=== PATIENT | male | born 1975 | race Caucasian/White ===

== ENCOUNTER 2017-05-30 08:18 | Emergency (ER) | payer MEDICAID ==
--- NOTE | 2017-05-30 09:17 | ER Document Report ---
ED General - General Chief Complaint: Probable Seizure Stated Complaint: POSSIBLE SEIZURE Time Seen by Provider: 05/30/17 09:16 Mode of Arrival: Medic Information source: Patient, Parent TRAVEL OUTSIDE OF THE [place] IN LAST 30 DAYS: No - HPI Notes: Patient is a 42-year-old male status post resection for anaplastic astrocytoma 2010 presents to the emergency department with report of a new onset seizure which occurred today just prior to arrival. The patient had right sided shaking followed by left-sided shaking then generalized tonic clonic seizure activity observed by his mother while he was sitting on the couch. EMS arrived to find a normal blood sugar and normal vital signs and the patient to be postictal with a gradual recovery. Patient did not bite his tongue or lose continence. Patient is on no medications. Patient is receiving regular MRIs of the brain every 2 months prior to seeing his regular neuro-oncologist. No HI or neck pain. - Related Data Allergies/Adverse Reactions: Penicillins Allergy (Verified 11/10/14 10:28) phenytoin sodium [From Dilantin] Allergy (Verified 11/10/14 10:28) phenytoin sodium extended [From Dilantin] Allergy (Verified 11/10/14 10:28) Past Medical History - General Information source: Patient, Parent - Social History Smoking Status: Never Smoker Chew tobacco use (# tins/day): No Frequency of alcohol use: None Drug Abuse: None Lives with: Family Family History: Reviewed & Not Pertinent Pulmonary Medical History: Denies: Hx Tuberculosis Past Surgical History: Reports: Hx Cholecystectomy, Hx Neurologic Surgery - brain tumor, Hx Orthopedic Surgery - ACL repair - Immunizations Hx Diphtheria, Pertussis, Tetanus Vaccination: Yes Hx Pneumococcal Vaccination: 11/19/11 Review of Systems - Review of Systems Notes: REVIEW OF SYSTEMS: CONSTITUTIONAL : Denies fever, chills, or sweats. Denies recent illness. EENT: Denies eye, ear, throat, or mouth pain or symptoms. Denies nasal or sinus congestion or discharge. Denies throat, tongue, or mouth swelling or difficulty swallowing. CARDIOVASCULAR: Denies chest pain. Denies palpitations or racing or irregular heart beat. Denies ankle edema. RESPIRATORY: Denies cough, cold, or chest congestion. Denies shortness of breath, difficulty breathing, or wheezing. GASTROINTESTINAL: Denies abdominal pain or distention. Denies nausea, vomiting , or diarrhea. Denies blood in vomitus, stools, or per rectum. Denies black, tarry stools. Denies constipation. GENITOURINARY: Denies difficulty urinating, painful urination, burning, frequency, blood in urine, or discharge. MUSCULOSKELETAL: Denies back or neck pain or stiffness. Denies joint pain or swelling. SKIN: Denies rash, lesions or sores. HEMATOLOGIC : Denies easy bruising or bleeding. LYMPHATIC: Denies swollen, enlarged glands. NEUROLOGICAL: Denies confusion or altered mental status. Denies passing out or loss of consciousness. Denies dizziness or lightheadedness. Denies headache. Denies weakness or paralysis or loss of use of either side. Denies problems with gait or speech. Denies sensory loss, numbness, or tingling. PSYCHIATRIC: Denies anxiety or stress. Denies depression, suicidal ideation, or homicidal ideation. ALL OTHER SYSTEMS REVIEWED AND NEGATIVE. Dictation was performed using [employer] voice recognition software Physical Exam - Vital signs Vitals: Resp BP Pulse Ox 14 121/76 100 05/30/17 08:23 05/30/17 08:23 05/30/17 08:23 - Notes Notes: PHYSICAL EXAMINATION: GENERAL: Well-appearing, well-nourished and in no acute distress. HEAD: Atraumatic, normocephalic with the exception of old postsurgical changes. EYES: Pupils equal round and reactive to light, extraocular movements intact, sclera anicteric, conjunctiva are normal. ENT: Nares patent, oropharynx clear without exudates. Moist mucous membranes. NECK: Normal range of motion, supple without lymphadenopathy LUNGS: Breath sounds clear to auscultation bilaterally and equal. No wheezes rales or rhonchi. HEART: Regular rate and rhythm holosystolic 2/6 ejection murmur best auscultated over the apex. This is consistent with the patient's history of mitral valve prolapse. ABDOMEN: Soft, nontender, nondistended abdomen. No guarding, no rebound. No masses appreciated. Musculoskeletal: Normal range of motion, no pitting or edema. No cyanosis. NEUROLOGICAL: Cranial nerves grossly intact. Normal speech, normal gait. Normal sensory, motor exams. Patient has mild chronic Short-term memory loss, but is currently alert and oriented 3. PSYCH: Normal mood, normal affect. SKIN: Warm, Dry, normal turgor, no rashes or lesions noted. Course - Re-evaluation Re-evalutation: 05/30/17 14:23 Patient was noted to be in bigeminy on the supply coordinator while in route by EMS. While in the emergency department, the patient was briefly and trigeminy, but had stable vital signs otherwise and no significant bradycardia or weakness or other abnormality. There was no recurrent seizure activity. There is no evidence that the patient's bigeminy is a etiology of the patient' s observed seizure activity. This seems more postsurgical related to the previous astrocytoma resection. Patient does have a history of mitral valve prolapse, but did not have further follow-up since she was a child and was told they would not be additional intervention. I have informed the patient and his family that he needs a follow-up with cardiology and possible Holter monitor and echocardiogram. Discussion was undertaken with the patient's neuro oncologist office, and they were in agreement with his regular scheduled follow-up MRI on 06/06/18 with follow-up with the neuro-oncologist the next day. They will arrange for outpatient cardiology evaluation and echocardiogram. They also agreed with starting the patient on Keppra and he was given his first dose. 05/30/17 14:27 No suggestion for acute intracranial hemorrhage or recurrence of cancer or electrolyte imbalance. Patient does not drink and there is no drug toxidrome. No recent sleep deprivation or other precipitant. 05/30/17 14:27 - Vital Signs Vital signs: Temp Pulse Resp BP Pulse Ox 98.6 F 19 119/76 94 05/30/17 12:16 05/30/17 12:26 05/30/17 12:26 05/30/17 12:26 - Laboratory Result Diagrams: 05/30/17 09:00 05/30/17 09:00 Discharge - Discharge Clinical Impression: Bigeminy, Seizure Condition: Stable Disposition: HOME, SELF-CARE Instructions: New Seizure ([facility]) Additional Instructions: No baths. Showers only. You need follow-up with cardiology for bigeminy and a repeat echocardiogram. Follow-up with Dr. Dutta after MRI next week. Prescriptions: Levetiracetam [Keppra 500 mg Tablet] 500 mg PO Q12 #60 tablet Referrals: SHERLEY GREGG PA [Primary Care Provider] - Follow up as needed
[2017-05-30 09:50] LABS: ABSOLUTE BASOPHILS # (AUTO) 0.1 10^3/uL (0.0-0.2); ABSOLUTE EOSINOPHILS # (AUTO) 0.3 10^3/uL (0.0-0.6); ABSOLUTE LYMPHOCYTES (AUTO) 1.9 10^3/uL (0.5-4.7); ABSOLUTE MONOCYTES (AUTO) 0.4 10^3/uL (0.1-1.4); EOSINOPHILS % (AUTO) 4.8 % (0-6); HEMATOCRIT 41.7 % (37.9-51.0); HEMOGLOBIN 14.6 g/dL (13.5-17.0); HGB HCT DIFFERENCE 2.1; LYMPHOCYTES % (AUTO) 27.9 % (13-45); MEAN CORPUSCULAR HGB CONC 34.9 g/dL (32.0-36.0); MEAN CORPUSCULAR VOLUME 86 fl (80-97); MONOCYTES % (AUTO) 6.4 % (3-13); RED BLOOD COUNT 4.85 10^6/uL (4.35-5.55); RED CELL DISTRIBUTION WIDTH 13.1 % (11.5-14.0); SEGMENTED NEUTROPHILS % (AUTO) 59.9 % (42-78); WHITE BLOOD COUNT 6.6 10^3/uL (4.0-10.5)
[2017-05-30 10:02] LABS: ALANINE AMINOTRANSFERASE 45 U/L (21-72); ALBUMIN 4.3 g/dL (3.5-5.0); ALKALINE PHOSPHATASE 117 U/L (38-126); ANION GAP 10 (5-19); ASPARTATE AMINO TRANSFERASE 40 U/L (17-59); BILIRUBIN,DIRECT 0.3 mg/dL (0.0-0.4); BILIRUBIN,TOTAL 0.8 mg/dL (0.2-1.3); BLOOD UREA NITROGEN 18 mg/dL (7-20); CALCIUM 9.7 mg/dL (8.4-10.2); CARBON DIOXIDE 25 mmol/L (22-30); CHLORIDE 106 mmol/L (98-107); CREATININE RESULT 0.96 mg/dL (0.52-1.25); GLUCOSE 87 mg/dL (75-110); MAGNESIUM 2.2 mg/dL (1.6-2.3); POTASSIUM 4.7 mmol/L (3.6-5.0); SODIUM 140.9 mmol/L (137-145); TOTAL PROTEIN 7.5 g/dL (6.3-8.2)
--- NOTE | 2017-05-30 10:23 | RADIOLOGY REPORT (SQ) ---
EXAM DESCRIPTION: CT HEAD WITHOUT COMPLETED DATE/TIME: 05/30/2017 10:12 am REASON FOR STUDY: new onset seizure, hx astrocytoma removal 2010 COMPARISON: 08/19/2011. TECHNIQUE: Axial images acquired through the brain without intravenous contrast. Images reviewed wi th bone, brain and subdural windows. Images stored on PACS. All CT scanners at this facility use dose modulation, iterative reconstruction, and/or weight based d osing when appropriate to reduce radiation dose to as low as reasonably achievable (ALARA). [facility]: Dose Right [facility]: CareDose [facility]: Dose Right [facility]: Teradose 4D [facility]: [employer] RADIATION DOSE: Up-to-date CT equipment and radiation dose reduction techniques were employed. CTDIv ol: 64.6 mGy. DLP: 1292 mGy-cm. mGy. LIMITATIONS: None. FINDINGS: VENTRICLES: Mild diffuse ventriculomegaly. CEREBRUM: Surgical changes in the left frontal lobe with encephalomalacia. No masses. No hemorrhage . No midline shift. Normal chew/white matter differentiation. No evidence for acute infarction. CEREBELLUM: No masses. No hemorrhage. No alteration of density. No evidence for acute infarction. EXTRAAXIAL SPACES: CSF collection overlying the left cerebral hemisphere. ORBITS AND GLOBE: No intra- or extraconal masses. Normal contour of globe without masses. CALVARIUM: Left frontal craniotomy. No fracture. PARANASAL SINUSES: No fluid or mucosal thickening. SOFT TISSUES: No mass or hematoma. OTHER: No other significant finding. IMPRESSION: SURGICAL CHANGES IN THE LEFT FRONTAL LOBE WITH ASSOCIATED CHRONIC FINDINGS. NO ACUTE FI NDINGS. TECHNICAL DOCUMENTATION: JOB ID: [id number] Quality ID # [id number]: Final reports with documentation of one or more dose reduction techniques (e.g., Au tomated exposure control, adjustment of the mA and/or kV according to patient size, use of iterative reconstruction technique) 2010 [employer]- All Rights Reserved
--- NOTE | 2017-05-30 10:36 | RADIOLOGY REPORT (SQ) ---
EXAM DESCRIPTION: CHEST PA/LAT COMPLETED DATE/TIME: 05/30/2017 10:25 am REASON FOR STUDY: arrhythmia COMPARISON: 01/18/2014. EXAM PARAMETERS: NUMBER OF VIEWS: two views TECHNIQUE: Digital Frontal and Lateral radiographic views of the chest acquired. RADIATION DOSE: NA LIMITATIONS: none FINDINGS: LUNGS AND PLEURA: No opacities, masses or pneumothorax. No pleural effusion. MEDIASTINUM AND HILAR STRUCTURES: No masses or contour abnormalities. HEART AND VASCULAR STRUCTURES: Heart normal size. No evidence for failure. BONES: No acute findings. HARDWARE: Clips in the upper abdomen. OTHER: No other significant finding. IMPRESSION: NO SIGNIFICANT RADIOGRAPHIC FINDING IN THE CHEST. TECHNICAL DOCUMENTATION: JOB ID: [id number] [employer]- All Rights Reserved
[2017-05-30 11:04] LABS: URINE BARBITURATES SCREEN NEGATIVE; URINE METHADONE SCREEN NEGATIVE; URINE OPIATES LOW NEGATIVE; URINE PHENCYCLIDINE SCREEN NEGATIVE
[2017-05-30] MEDS ORDERED: LEVETIRACETAM 500 MG TABLET PO ONE (12:02)
--- NOTE | 2017-05-30 13:07 | EKG REPORT ---
SEVERITY:- BORDERLINE ECG - SINUS RHYTHM CONSIDER ANTERIOR INFARCT BORDERLINE T ABNORMALITIES, LATERAL LEADS : Confirmed by: Neo Castellano MD 30-May-2017 13:06:40
--- NOTE | 2017-05-30 13:09 | EKG REPORT ---
SEVERITY:- ABNORMAL ECG - SINUS RHYTHM MILD NONSPECIFIC ST-T CHANGES ANTERIOR WALL. : Confirmed by: Neo Castellano MD 30-May-2017 13:08:28
[2017-05-30 18:10] VITALS: BP 122/68
== END 2017-05-30 13:05 | disposition home or self-care (01) ==
LOC: ER 08:18
DX: R00.8 Other abnormalities of heart beat (principal); R56.9 Unspecified convulsions
CPT/HCPCS: 93005; 99285; 36415; 83735; 85025; 80053; 84484; 80307; 71020; 70450; 93010; J3490

== ENCOUNTER 2019-06-26 08:25 | Emergency (ER) | payer MEDICARE, MEDICAID ==
[2019-06-26] MEDS ORDERED: NORMAL SALINE 1000 ML 1,000 ML IV ONE (11:11)
[2019-06-26] MEDS ORDERED: KETOROLAC TROMETHAMINE INJ/PF 30 MG/1 ML SDV IV ONE (11:11)
[2019-06-26] MEDS ORDERED: METOCLOPRAMIDE HCL INJ/PF 10 MG/2 ML SDV IV ONE (11:11)
[2019-06-26] MEDS ORDERED: DIPHENHYDRAMINE HCL 50 MG/ML VIAL IV ONE (11:11)
--- NOTE | 2019-06-26 11:15 | ER Document Report ---
ED General - General Chief Complaint: Headache Stated Complaint: HEADACHE Time Seen by Provider: 06/26/19 10:56 TRAVEL OUTSIDE OF THE [place] IN LAST 30 DAYS: No - HPI Notes: Patient is a 44-year-old male who presents to the emergency department for evaluation of a left-sided headache. It started yesterday around noon. He describes as an aching pain, rates it currently at a 4 out of 10. He states is worsened by standing up. Denies that anything makes it better besides sitting back down. He said no visual changes. No photophobia no phonophobia. No nausea or vomiting. He is moving his arms and legs without difficulty. The patient does have a history of an astrocytoma, status post resection back in 2011. He follows with Abad yearly. He actually had an MRI on May 07, was evaluated by [facility], and told to follow-up in 1 year. - Related Data Allergies/Adverse Reactions: Penicillins Allergy (Verified 06/26/19 08:29) phenytoin sodium [From Dilantin] Allergy (Verified 06/26/19 08:29) phenytoin sodium extended [From Dilantin] Allergy (Verified 06/26/19 08:29) Past Medical History - General Information source: Patient - Social History Smoking Status: Never Smoker Family History: Reviewed & Not Pertinent Patient has suicidal ideation: No Patient has homicidal ideation: No Pulmonary Medical History: Denies: Hx Tuberculosis Neurological Medical History: Reports: Hx Seizures - Only one seizure surrounding astrocytoma diagnosis Renal/ Medical History: Denies: Hx Peritoneal Dialysis Malignancy Medical History: Reports Hx Brain Cancer Past Surgical History: Reports: Hx Cholecystectomy, Hx Neurologic Surgery - brain tumor, Hx Orthopedic Surgery - ACL repair - Immunizations Hx Diphtheria, Pertussis, Tetanus Vaccination: Yes Hx Pneumococcal Vaccination: 11/19/11 Review of Systems - Review of Systems Constitutional: No symptoms reported EENT: No symptoms reported Cardiovascular: No symptoms reported Respiratory: No symptoms reported Gastrointestinal: No symptoms reported Male Genitourinary: No symptoms reported Musculoskeletal: No symptoms reported Skin: No symptoms reported Neurological/Psychological: See HPI Physical Exam - Vital signs Vitals: Temp Pulse Resp BP Pulse Ox 97.7 F 55 L 16 104/57 L 100 06/26/19 08:31 06/26/19 08:31 06/26/19 08:31 06/26/19 08:31 06/26/19 08:31 - Notes Notes: Vital signs reviewed, please refer to chart. Head is normocephalic, atraumatic. Well-healed surgical scar over the left parietal skull without signs of dehiscence, erythema, induration. Mild tenderness noted. Pupils equal round, reactive to light. Neck is supple without meningismus. Heart is regular rate and rhythm. Lungs are clear to auscultation bilaterally. Abdomen is soft, nontender, normoactive bowel sounds throughout. Extremities without cyanosis, clubbing. Posterior calves are nontender. Peripheral pulses are equal. Skin is warm and dry. Patient is awake, alert, oriented x3. Cranial nerves II - XII are grossly intact without focal neurological deficits. Strength is plus 5 out of 5 bilateral upper and lower extremities. Sensation is intact. Reflexes symmetrical. Intact [id number], rapid alternating movements, [id number]. Course - Re-evaluation Re-evalutation: 06/26/19 11:14 Patient presents emergency department for evaluation of a headache. It is not the worst headache of his life. Given his history, I am inclined to do some imaging. He had an MRI just 6 weeks ago and was this was without significant abnormality. I will go ahead and order a noncontrast CT scan. He is medicated here with Toradol, Reglan, Benadryl, fluids. Will reassess for response. 06/26/19 13:06 Patient feeling significantly improved after medication. CT scan failed to re veal any acute changes. The patient has no neurological deficits at this time. He is strongly encouraged to follow-up with his physician at [facility], as well as primary care this week. He is to return to the ED with worsening or concerning symptoms of any sort. - Vital Signs Vital signs: Temp Pulse Resp BP Pulse Ox 97.7 F 55 L 16 104/57 L 100 06/26/19 08:31 06/26/19 08:31 06/26/19 08:31 06/26/19 08:31 06/26/19 08:31 Discharge - Discharge Clinical Impression: Headache Qualifiers: Headache type: unspecified Headache chronicity pattern: acute headache Condition: Stable Disposition: HOME, SELF-CARE Instructions: Headache ([facility]), Toradol Injection ([facility]) Additional Instructions: Rest, stay well-hydrated. Follow-up with your physicians at [facility] as well as your primary care provider this week. Return the emergency department with worsening or new concerning symptoms of any sort.
--- NOTE | 2019-06-26 12:31 | RADIOLOGY REPORT (SQ) ---
EXAM DESCRIPTION: CT HEAD WITHOUT COMPLETED DATE/TIME: 06/26/2019 11:59 am REASON FOR STUDY: Headache, craniotomy history COMPARISON: 05/30/2017 TECHNIQUE: Axial images acquired through the brain without intravenous contrast. Images reviewed wi th bone, brain and subdural windows. Additional sagittal and coronal reconstructions were generated. Images stored on PACS. All CT scanners at this facility use dose modulation, iterative reconstruction, and/or weight based d osing when appropriate to reduce radiation dose to as low as reasonably achievable (ALARA). [facility]: Dose Right [facility]: CareDose [facility]: Dose Right [facility]: Teradose 4D [facility]: Smart [employer] RADIATION DOSE: CT Rad equipment meets quality standard of care and radiation dose reduction techniq ues were employed. CTDIvol: 53.2 mGy. DLP: 1097 mGy-cm. mGy. LIMITATIONS: None. FINDINGS: VENTRICLES: Normal size and contour. CEREBRUM: Resection of a portion of the left frontal lobe. No acute hemorrhage. No acute infarction . No midline shift. Normal chew/white matter differentiation. No areas of low density in the white m atter. CEREBELLUM: No masses. No hemorrhage. No alteration of density. No evidence for acute infarction. EXTRAAXIAL SPACES: There is chronic left subdural fluid collection. ORBITS AND GLOBE: No intra- or extraconal masses. Normal contour of globe without masses. CALVARIUM: No fracture. PARANASAL SINUSES: No fluid or mucosal thickening. SOFT TISSUES: No mass or hematoma. OTHER: No other significant finding. IMPRESSION: Surgical changes with chronic left subdural fluid collection. No acute intracranial toña ging findings. EVIDENCE OF ACUTE STROKE: NO. COMMENT: Quality ID # 436: Final reports with documentation of one or more dose reduction techniques (e.g., Automated exposure control, adjustment of the mA and/or kV according to patient size, use of iterative reconstruction technique) TECHNICAL DOCUMENTATION: JOB ID: [id number]- All Rights Reserved Reading location - IP/workstation name: [email or web address]
[2019-06-26 13:26] VITALS: BP 106/67
== END 2019-06-26 13:19 | disposition home or self-care (01) ==
LOC: ER 08:25
DX: R51 Headache (principal); Z85.841 Personal history of malignant neoplasm of brain; Z98.890 Other specified postprocedural states; Z88.0 Allergy status to penicillin; Z88.8 Allergy status to other drugs, medicaments and biological substances
CPT/HCPCS: 99284; 96361; 96374; 96375; 70450; J1200; J1885; J2765; J7030